=== PATIENT | male | born 1960 | race Caucasian/White ===

== ENCOUNTER 2018-09-01 06:52 | Emergency (ER) | payer OTHER, SELFPAY ==
[2018-09-01 06:52] VITALS: BP 118/80; PULSE 89; RESP 22; TEMP 36.7; O2SAT 94; BMI 27.6
--- NOTE | 2018-09-01 07:20 | RAD_ITS ---
STUDY: X-RAY - LUMBAR SPINE REASON FOR EXAM: Male, 58 years old. Back pain after multiple recent falls TECHNIQUE: 3 view(s) of the lumbar spine were obtained. COMPARISON: None FINDINGS: Normal lumbar lordosis. There is no substantial scoliosis. There is a normal alignment of the vertebrae. There is multilevel endplate spondylosis of the lumbar vertebrae. There is multi-level degenerative disc disease with multi-level disc space narrowing. There is no demonstrated fracture. Mild compression deformity of the L2 vertebral body, chronic in nature. The soft tissue structures are unremarkable. RAD/Lumbar Spine 2 or 3 Views IMPRESSION: Degenerative changes of the spine, as detailed above. Electronically Signed: Alessandro Gee DO at 8:44 EST Tel , Service support ,
--- NOTE | 2018-09-01 07:20 | RAD_ITS ---
STUDY: X-RAY - PELVIS REASON FOR EXAM: Male, 58 years old. Pain after multiple falls TECHNIQUE: One view of the pelvis was obtained. COMPARISON: None. FINDINGS: There is a non-specific bowel gas pattern. Normal visualized soft tissue structures. There is narrowing with cortical sclerosis and osteophyte formation of the sacroiliac joint consistent with degenerative osteoarthritic changes. Normal visualized bilateral superior and inferior pubic rami. Normal pubic symphysis. Normal ischial tuberosities. Normal visualized right femoral head. Normal right acetabulum. Normal right hip joint. Normal visualized left femoral head. Normal left acetabulum. Normal left hip joint. RAD/Pelvis 1 or 2 Views IMPRESSION: No acute findings Electronically Signed: Alessandro Gee DO at 8:08 EST Tel , Service support ,
--- NOTE | 2018-09-01 08:56 | ED.VISSUMM ---
- ER Visit Summary Chief Complaint: Back patient History of Present Illness: The patient is a 72 F who presents to the emergency department via ambulance. Patient states he sustained 2 falls today. He states that they were mechanical in nature and that he went to reach for his walker and missed it. He states each time he landed in a sitting position and now has low back pain. He denies any loss of bowel or bladder dysfunction. He denies any leg weakness. He states he has a history of frequent falls. He denies hitting his head. He denies any blood thinners. He sees the [facility] in [place]. Physical Examination: Afebrile vital signs are stable Gen: Well-nourished well-developed Head: Normocephalic atraumatic Eyes: Perrl chronic right eye lateral deviation ENT: TMs clear no rhinorrhea moist mucous membranes Neck: Supple no lymphadenopathy no JVD nontender CVS: Regular rate rhythm no murmurs normal S1-S2 Respiratory: No distress clear to auscultation bilaterally chest nontender Abdomen: Soft nontender nondistended normal bowel sounds no masses Back: Tender palpation in the midline but mostly in the lumbar paraspinal musculature. No contusions or ecchymosis. Extremity: Nontender no edema Skin: Normal color no rash Neuro: alert orientated ?3 CN II-XII intact normal strength sensation reflexes gait cerebellar Psych: Normal affect normal mood Test Results: X-rays of the pelvis and lumbar spine were negative for acute. Noted severe degenerative changes. Emergency Department Course and Treatment: Patient remains neurologically intact. Patient has been up ambulating to the bathroom with his walker. Denies any difficulty walking at the current time he will be discharged home with instructions for heat and ibuprofen. Follow-up with primary care. Return if worsening or concerns. Impression: 1. Fall 2. Lumbar strain This note was generated with [employer] dictation software. It may contain incorrect words, spelling, and punctuation that were not noted in review of the chart prior to signing ED Disposition - Plan for ED Patient: Disposition: Home or Assisted Living Instructions: ED Sprain Strain Lumbar Prescriptions: Ibuprofen [Motrin] 600 mg PO Q8H PRN PRN #20 tab PRN Reason: Pain Referrals: [facility] [Primary [facility] Provider] - 1 Week if not improving
--- NOTE | 2018-09-01 09:07 | ED.RN ---
CALLED [facility] FOR TRANSPORT DUE TO [facility] NOT BEING AVAILABLE TO TRANSPORT. JAD FROM [facility] STATES THAT A STAFF MEMBER WILL BE HERE TO GET HIM IN 30 MIN TO AN HR. ASSISTED PT TO WAITING ROOM WITH WALKER AND GOT PT COFFEE. PT DENIES ANY OTHER NEEDS AT THIS TIME.
== END 2018-09-01 09:09 | disposition home or self-care (01) ==
PROVIDERS: Emergency Provider Emergency Medicine
DX: S39.012A Strain of muscle, fascia and tendon of lower back, initial encounter (principal); R29.6 Repeated falls; Z91.81 History of falling; Z79.82 Long term (current) use of aspirin; Z79.899 Other long term (current) drug therapy; W18.30XA Fall on same level, unspecified, initial encounter; Y93.89 Activity, other specified; Y92.89 Other specified places as the place of occurrence of the external cause; Y99.8 Other external cause status
CPT/HCPCS: 72100; 72170; 99284

== ENCOUNTER 2019-02-15 17:33 | Emergency (ER) | payer OTHER, SELFPAY ==
[2019-02-15 17:37] VITALS: BP 101/78; PULSE 102; RESP 16; TEMP 36.9; O2SAT 92; BMI 24.0
--- NOTE | 2019-02-15 18:21 | CT_ITS ---
STUDY: CT BRAIN WITHOUT CONTRAST REASON FOR EXAM: Male, 58 years old. Confusion dizziness postural change RADIATION DOSAGE (If Supplied By Facility): CTDIvol = ( 44.99 ) mGy, DLP = ( 1125.41 ) mGycm TECHNIQUE: Transaxial CT imaging of the brain was performed without administration of intravenous contrast material. Individualized dose optimization techniques were used for this CT. COMPARISON: No relevant priors. FINDINGS: Normal soft tissue structures. Normal calvarium. There is mild cerebral atrophy with widening of the extra-axial spaces and ventricular dilatation. There are a few areas of decreased attenuation within the white matter tracts of the supratentorial brain, consistent with microvascular disease changes. Normal basal ganglia and thalami. Normal brainstem. There is prominent CSF space within the posterior fossa which may represent vermin atrophy.. There is no intracranial hemorrhage. There are no findings of an acute ischemic infarction. Normal visualized paranasal sinuses. CT/Brain/Head without Contrast IMPRESSION: Cerebellar/vermis and atrophy. Cerebral atrophy greater than expected for age. Recommend correlation with history. No Visualized evidence of acute hemorrhage infarct or edema. Electronically Signed: Hanh Mayo MD at 19:13 EDT Tel , Service support ,
--- NOTE | 2019-02-15 18:22 | RAD_ITS ---
STUDY: X-RAY CHEST REASON FOR EXAM: Male, 58 years old. RECENT back surgery, cough pain TECHNIQUE: PA and lateral views of the chest. COMPARISON: March 06, 2016 chest x-ray, CT chest March 06, 2016 FINDINGS: There are persistent or recurrent lower lobe opacities with slightly greater prominence in the right lung base when compared to prior study. Lungs are underexpanded.. Normal size heart. Normal mediastinum and sara. Normal visualized pulmonary arteries. Normal visualized aortic arch and descending thoracic aorta. There is postoperative change status post spinal fusion in the thoracic spine T7-T12. There are visualized skin chago projected over the left of midline chest. Normal visualized ribs, clavicles, and shoulders. There are gaseous distended loops of bowel in the upper abdomen. RAD/Chest PA and Lateral IMPRESSION: Bilateral lower lobe infiltrates very similar to the prior study which may represent recurrence and/or chronicity. Given clinical history. Consider follow up CT scan of the chest. Status post new spinal fusion , persisting gassy appearing loops of bowel in the upper abdomen. Electronically Signed: Hanh Mayo MD at 19:29 EDT Tel , Service support ,
[2019-02-15 18:51] LABS: Absolute Lymphocyte Count 1.35 X10^3/uL (0.83-4.51); Absolute Neutrophil Count 8.6 X10^3/uL (2.0-7.7); Basophil# 0.02 X10^3/uL; Basophil% 0.2 % (0-1); Eosinophil# 0.17 X10^3/uL; Eosinophils% 1.5 % (0-5); Hematocrit 32.4 % (40-54); Hemoglobin 10.8 g/dL (13.0-16.5); Lymphocyte # 1.35 X10^3/ul (4.0); Lymphocyte % 11.7 % (19-41); Mean Corp Hgb Conc 33.3 g/dL (32-36); Mean Corpuscular Hgb 30.4 pg (27.0-32.0); Mean Corpuscular Volume 91.3 fL (80-94); Mean Platelet Vol. 8.9 fl (6.2-12.0); Monocyte# 1.38 X10^3/uL; Monocyte% 11.9 % (0-10); NRBC Flagged by Analyzer 0 % (0-5); Neutrophil # 8.55 X10^3/uL (2.7-7.7); Neutrophil % 73.9 % (47-70); Platelet Count 302 K/mm3 (150-450); RBC Distribution Width CV 13.2 % (11.6-14.6); RBC Distribution Width SD 44.7 fl (35.1-43.9); Red Blood Count 3.55 M/mm3 (4.6-6.2); White Blood Count 11.6 K/mm3 (4.4-11.0)
[2019-02-15 19:10] LABS: Anion Gap 8 (5-15); BUN 13 mg/dL (7-18); BUN/Creat Ratio 14.3 RATIO (10-20); Calcium,Total 8.6 mg/dL (8.5-10.1); Chloride 101 mmol/L (98-107); Creatinine, Serum 0.91 mg/dL (0.70-1.30); EST Glomerular Filtration Rate 91 mL/min (>60); Est Glom Filt Rate - Afr Amer 110 mL/min (>60); Estimated Creatinine Clearance 117.27 ml/min; Glucose 90 mg/dL (74-106); Potassium 3.9 mmol/L (3.5-5.1); Sodium Level 139 mmol/L (136-145)
[2019-02-15 19:14] VITALS: BP 117/75; PULSE 98; RESP 17; O2SAT 96
[2019-02-15] MEDS: 0.9% Normal Saline 1,000 ML 1000 ML IV (19:14)
--- NOTE | 2019-02-15 19:55 | CT_ITS ---
STUDY: CTA CHEST REASON FOR EXAM: Male, 58 years old. Cough recent thoracic surgery RADIATION DOSAGE (If Supplied By Facility): CTDIvol = ( 8.44 ) mGy, DLP = ( 453.87 ) mGycm TECHNIQUE: The examination was performed with the intravenous administration of 100 IV Isovue 370. Post-processing of the angiographic images was performed, with multiplanar reformation and 3D reconstruction. Individualized dose optimization techniques were used for this CT. COMPARISON: March 06, 2016 CT scan chest FINDINGS: Normal enhancement of the main pulmonary artery and right and left pulmonary arteries. Normal enhancement of the bilateral peripheral pulmonary arteries. There is no demonstrated pulmonary embolism. There is a bovine arch with the common takeoff of the innominate and left common carotid. Aorta is tortuous and partially calcified. There is no demonstrated aortic dissection. Normal heart and pericardium. Normal mediastinum. Normal hilar regions. Normal visualized trachea and bronchi. There is a similar-appearing subtle groundglass opacity within the lung apices. There is bronchiectasis within the right middle lobe lingula and lower lobes. This is fairly extensive and there is left lingular chronic focal consolidation image #101 axial view compared to prior study 110 series 102 March 06, 2017. There is chronic appearing peribronchial inflammatory change and similar appearing left lower lobe consolidation. The right lower lobe is worse than prior study and there may be a slightly greater amount of fluid in the right lower lobe when compared to the prior study. There is a persistent left pleural effusion. There is a worse right middle lobe infiltrate. Normal chest wall structures. Since prior study there is been interval fusion of the lumbar spine for a apparent fracture at the level of T10 with loss of height appearing to extend through the posterior elements. Bilateral pedicle screws are seen T8-T11. There is multilevel degenerative change. Is postoperative change in the proximal posterior spinous soft tissues including gas on image #150 to with overlying skin chago. There is a mildly thick-walled appearance of the esophagus with an air-fluid level there is a partially visualized left renal cyst measuring 1.[address]/CTA Chest W/WO Contrast IMPRESSION: Status post spinal fusion. Fixating an apparent fracture injury at the level of approximately T10 postoperative change subcutaneous gas skin chago are present. No visualized pulmonary embolism. There are persistent bilateral lower lobe chronic infiltrates associated with bronchiectasis. This appears new or worse in the right middle lobe and right lower lobe when compared to prior study ingesting worsening or superimposed new pneumonia. The esophagus is distended and there is an air-fluid level. There may be some component of aspiration. Electronically Signed: Hanh Mayo MD at 20:43 EDT Tel , Service support ,
--- NOTE | 2019-02-15 20:54 | ED.RN ---
report caalled to andres esparza [facility]
[2019-02-15 21:00] VITALS: BP 106/64; PULSE 92; RESP 18; O2SAT 98
--- NOTE | 2019-02-15 21:05 | ED.RN ---
andres called about pt orientation. andres said pt leaves the [facility] and going home in taxi is ok
--- NOTE | 2019-02-15 21:43 | ED.DCSUM_ITS ---
- ER Visit Summary Date of Service: 02/15/19 Chief Complaint: Confusion History of Present Illness: The patient is a 58 M who presents with confusion for the past 2 days. Patient states he has been getting forgetful and confused. Patient states nothing seems to make it better or worse. Patient denies any headache. Patient denies any paresthesias or weakness. Patient had recent surgery on his lower thoracic spine. Patient denies any fevers or chills. Patient denies any drainage from the incision. Patient denies any chest pain or shortness of breath. Patient denies any cough. Physical Examination: Vital signs are stable except for mild tachycardia of 102. Patient is afebrile. Patient is in no acute distress. Oral mucosa is pink and moist. Neck is supple. Trachea is midline. There is no JVD. Heart was regular rate and rhythm. Lungs are clear bilaterally. There is adequate respiratory effort noted. Abdomen is soft and nontender. Cranial nerves II through XII are intact. There are no focal motor or sensory deficits noted. Patient is alert and oriented to person place and year but is somewhat confused on the month and a day. Test Results: CBC shows a slight leukocytosis of 11.6. Basic metabolic profile and troponin were normal. Chest x-ray shows bilateral lower lobe infiltrates that were present on previous x-ray. CT scan of the brain was obtained. There is atrophy in no acute process. CTA of the chest was obtained for possible pulmonary embolism. There are new or worsening right middle lobe and right lower lobe infiltrate. These were interpreted by the radiologist. Emergency Department Course and Treatment: Patient was given a dose of Levaquin here. On reevaluation the patient was alert and oriented to person place and time. Patient knew the day and the month. Patient was feeling better on reevaluation. Patient was given a prescription for Levaquin. Patient was instructed to follow-up with his primary care physician in 3 to 5 days. Patient understood and was agreeable with the plan. All questions were answered. Disposition: Discharge home Impression: Pneumonia This note was generated with [employer] dictation software. It may contain incorrect words, spelling, and punctuation that were not noted in review of the chart prior to signing ED Disposition - Plan for ED Patient: Disposition: Home or Assisted Living Diagnosis: Pneumonia Instructions: PNEUMONIA (Adult) Prescriptions: Levofloxacin [Levaquin] 750 mg PO DAILY #7 tab Prescription Printed Referrals: [facility] [Primary Care Provider] - 3-5 Days
[2019-02-15] MEDS: levoFLOXacin 750 MG Tablet PO (21:45)
[2019-02-15 21:57] VITALS: BP 107/71; PULSE 92; RESP 18; O2SAT 96
== END 2019-02-15 21:58 | disposition home or self-care (01) ==
PROVIDERS: Emergency Provider Emergency Medicine
DX: J18.9 Pneumonia, unspecified organism (principal)
CPT/HCPCS: 70450; 71046; 71275; 80048; 84484; 85025; 96360; 99285; Q9967; A4216

== ENCOUNTER 2019-02-18 16:38 | Emergency (ER) | payer OTHER, SELFPAY ==
[2019-02-18 16:39] VITALS: BP 116/70; PULSE 92; RESP 17; TEMP 36.6; O2SAT 99; BMI 24.2
--- NOTE | 2019-02-18 18:57 | EKG12_ITS ---
Test Reason : FALL Blood Pressure : / mmHG Vent. Rate : 092 BPM Atrial Rate : 092 BPM P-R Int : 196 ms QRS Dur : 082 ms QT Int : 356 ms P-R-T Axes : 037 047 030 degrees QTc Int : 440 ms Normal sinus rhythm Indeterminate axis Low voltage QRS Borderline ECG Confirmed by CHRISTOPHER CHO, EMILY ([id number]), video news editor MERON GUZMAN ([id number]) on 02/21/2019 1:47:40 PM Referred By: KEYSHA Confirmed By:EMILY WHITE MD
[2019-02-18 19:07] VITALS: RESP 18
[2019-02-18 19:25] LABS: Absolute Lymphocyte Count 1.55 X10^3/uL (0.83-4.51); Absolute Neutrophil Count 6.2 X10^3/uL (2.0-7.7); Basophil# 0.03 X10^3/uL; Basophil% 0.3 % (0-1); Eosinophil# 0.11 X10^3/uL; Eosinophils% 1.3 % (0-5); Hematocrit 34.7 % (40-54); Hemoglobin 11.4 g/dL (13.0-16.5); Lymphocyte # 1.55 X10^3/ul (4.0); Lymphocyte % 17.8 % (19-41); Mean Corp Hgb Conc 32.9 g/dL (32-36); Mean Corpuscular Hgb 29.8 pg (27.0-32.0); Mean Corpuscular Volume 90.6 fL (80-94); Mean Platelet Vol. 9.1 fl (6.2-12.0); Monocyte% 9.2 % (0-10); NRBC Flagged by Analyzer 0 % (0-5); Neutrophil # 6.19 X10^3/uL (2.7-7.7); Neutrophil % 70.9 % (47-70); Platelet Count 393 K/mm3 (150-450); RBC Distribution Width CV 13.4 % (11.6-14.6); RBC Distribution Width SD 44.2 fl (35.1-43.9); Red Blood Count 3.83 M/mm3 (4.6-6.2); White Blood Count 8.7 K/mm3 (4.4-11.0)
[2019-02-18 19:30] LABS: Anion Gap 3 (5-15); BUN 13 mg/dL (7-18); Chloride 102 mmol/L (98-107); EST Glomerular Filtration Rate 81 mL/min (>60); Est Glom Filt Rate - Afr Amer 99 mL/min (>60); Estimated Creatinine Clearance 106.71 ml/min; Glucose 88 mg/dL (74-106); Potassium 3.9 mmol/L (3.5-5.1); Sodium Level 139 mmol/L (136-145)
--- NOTE | 2019-02-18 19:38 | RAD_ITS ---
STUDY: X-RAY - RIGHT KNEE REASON FOR EXAM: Male, 58 years old. Right knee pain after falling. TECHNIQUE: 4 view(s) of the knee. COMPARISON: None. FINDINGS: Normal visualized distal femur. Normal visualized proximal tibia and fibula. Normal proximal tibiofibular articulation. Enthesophyte of the superior pole of the patella. Negative for fracture deformity. Normal medial femorotibial compartment. Normal lateral femorotibial compartment. Minimal degenerative changes of the patellofemoral compartment negative for a substantial hemarthrosis. Anterior soft tissue swelling and swelling above the patella. Quadriceps tendon is ill-defined. RAD/Knee 4 or More Views IMPRESSION: Negative for acute fracture, dislocation or a substantial hemarthrosis. Mild degenerative changes of the patellofemoral articulation. Anterior soft tissue swelling. Ill-defined quadriceps tendon. Question injury of the quadriceps tendon. Electronically Signed: Graciela Contreras MD at 19:59 EDT , Service support ,
[2019-02-18 20:55] VITALS: BP 119/52; PULSE 93; RESP 15; O2SAT 96
--- NOTE | 2019-02-18 22:11 | CM.ED ---
SOCIAL WORK THIS WORKER INFORMED BY NURSING PATIENT UNABLE TO RETURN TO [place]. FOLLOW UP CALL MADE TO [place], SPOKE WITH ANTONIO WHO REPORTS PATIENT IS ABLE TO RETURN. ANTONIO INQUIRING WHO GAVE THAT INFORMATION TO STAFF. INFORMED THIS WORKER UNAWARE AND WILL FOLLOW UP. UPDATED DR. WASHINGTON AND PATIENT. RECORDS MANAGEMENT ANALYST TO SET UP TRANSPORTATION BACK TO [place]. NURSE TO CALL AND GIVE REPORT TO [phone]. PHIL BOSE, WASH TEST CHECKER, RADIOLOGY SCHEDULER.
--- NOTE | 2019-02-18 22:23 | ED.RN ---
PT FOUND ON FLOOR ON HIS KNEES AFTER THIS RN HEARD A LOUD NOISE FROM ROOM. ASSISTED WITH A URINARY THEN BACK TO BED. BOTH SIDERAILS PLACED UP. PT STATES HE IS SORRY. I SHOULD HAVE HIT THE BUTTON WITH ASSISTANCE URINATING. MD NOTIFIED OF PATIENT FALL. NO FURTHER ORDERS GIVEN. ICE PLACED TO KNEE AND PRIMARY RN NOTIFIED
--- NOTE | 2019-02-18 22:28 | ED.VISSUMM ---
- ER Visit Summary Date of Service: 02/18/19 Chief Complaint: Right knee pain and frequent falls History of Present Illness: The patient is a 58 M who presents with right knee pain and frequent falls over the past few days. Patient lives at an assisted living facility. Patient states he does normally walk with a walker but has not been doing so recently. Patient was seen here recently diagnosed with pneumonia. Patient complains of worsening pain in his right knee. Patient states the pain is worse with ambulation. Patient denies any paresthesias. Physical Examination: Vital signs are stable. Patient is afebrile. Patient is in no acute distress. Cranial nerves II through XII are intact. Strength is 5/5 bilateral knee upper and lower extremities. There are no sensory deficits noted. Musculoskeletal exam reveals tenderness over the right knee. There is no deformity. There is no effusion. There is good range of motion. There is no laxity appreciated. Extensor mechanism is intact. Heart was regular rate and rhythm. Lungs are clear and equal bilaterally. Abdomen is soft. Bowel sounds are normal. There is no tenderness. Test Results: X-rays of the right knee were obtained. There is no acute fracture or dislocation. There are mild degenerative changes. CBC, basic metabolic profile, troponin were obtained and were normal. EKG showed normal sinus rhythm with a rate of 92. There are no acute ST or T wave changes noted. Emergency Department Course and Treatment: Patient was given a knee immobilizer. Initially, patient and caregiver stated that his extended care facility did not want him back due to the frequent falls. However, later in his emergency department stay a call was placed to his extended care facility and stated that he could come back. There is no reason to admit him to the hospital at this time. Patient will be discharged home. Patient was instructed to use his walker at all times. Patient was instructed to follow-up with his primary care physician in 5 to 7 days. Patient appeared to understand and was agreeable with the plan. All questions were answered. Disposition: Discharge home Impression: 1. Right knee contusion 2. Frequent falls This note was generated with [employer] software. It may contain incorrect words, spelling, and punctuation that were not noted in review of the chart prior to signing ED Disposition - Plan for ED Patient: Disposition: Home or Assisted Living Diagnosis: Contusion of right knee, initial encounter, Falls frequently Instructions: Fall Prevention Referrals: [facility] [Primary Care Provider] - 5-7 Days
[2019-02-18 23:14] VITALS: BP 143/80; PULSE 80; RESP 16
[2019-02-18 23:25] VITALS: BP 117/78; PULSE 95; RESP 15; O2SAT 96
== END 2019-02-19 | disposition home or self-care (01) ==
PROVIDERS: Emergency Provider Emergency Medicine
DX: S80.01XA Contusion of right knee, initial encounter (principal); R29.6 Repeated falls; M54.9 Dorsalgia, unspecified; X58.XXXA Exposure to other specified factors, initial encounter; Y93.9 Activity, unspecified; Y92.9 Unspecified place or not applicable; F20.9 Schizophrenia, unspecified; Z87.01 Personal history of pneumonia (recurrent); Z79.82 Long term (current) use of aspirin; Z79.899 Other long term (current) drug therapy
CPT/HCPCS: 73564; 80048; 84484; 85025; 93005; 99285; A4216